=== PATIENT | male | born 1940 | race Caucasian/White ===

== ENCOUNTER 2017-06-23 05:48 | Inpatient (IN) | payer OTHER ==
[2017-06-23] MEDS ORDERED: MUPIROCIN 2% 22 GM OINT NS ONE (06:00)
[2017-06-23] MEDS ORDERED: ceFAZolin 2 GM/DEXTROSE 100 ML IV ONE (06:00)
[2017-06-23] MEDS ORDERED: LIDOCAINE 1% 2 ML INJ ID PRN (06:16)
[2017-06-23] MEDS ORDERED: LR 1,000 ML IV ONE (06:16)
--- NOTE | 2017-06-23 06:53 | PDHPUP ---
History & Physical Update H&P update statement: This history and physical update is based on an assessment of the patient which was completed after admission or registration (within 24 hours), but prior to the surgery/procedure. H&P changes: Screening labs ok.
[2017-06-23] MEDS ORDERED: MIDAZOLAM 2 MG/2 ML VIAL IVP ONE (06:56)
--- NOTE | 2017-06-23 06:56 | PDANEPAE ---
ANE History of Present Illness 77 yo for vats lobectomy ANE Past Medical History - Cardiovascular History Hx Hypertension: No Hx Arrhythmias: No Hx Chest Pain: No Hx Coronary Artery / Peripheral Vascular Disease: No Hx CHF / Valvular Disease: No Hx Palpitations: No - Pulmonary History Hx COPD: No Hx Asthma/Reactive Airway Disease: No Hx Recent Upper Respiratory Infection: No Hx Oxygen in Use at Home: No Hx Sleep Apnea: No Sleep Apnea Screening Result - Last Documented: Positive - Neurologic History Hx Cerebrovascular Accident: No Hx Seizures: No Hx Dementia: No - Endocrine History Hx Diabetes: No Obesity: no - Renal History Hx Renal Disorders: Yes Renal History Comment: NOCTURIA - Liver History Hx Hepatic Disorders: No - Neurological & Psychiatric Hx Hx Neurological and Psychiatric Disorders: No - Cancer History Hx Cancer: Yes Cancer History Comment: MELANOMA. LYMPHOMA - Congenital Disorder History Hx Congenital Disorders: No - GI History Hx Gastrointestinal Disorders: No - Other Health History Other Health History: GLAUCOMA. FATIQUE FOR AWHILE NOW. PROBLEM WITH LT EYE LOOSING VISION - Chronic Pain History Chronic Pain: No - Surgical History Prior Surgeries: APPENDECTOMY. HAYLEY CATARACT. CLEFT LIP. REMVL MELANOMA LT EAR. LT RETINAL REPAIR. LT SHLDR. TONSILLECTOMY ANE Review of Systems - Exercise capacity METS (RN): 4 METS ANE Patient History - Allergies Allergies/Adverse Reactions: poison tiera extract Allergy (Verified 06/23/17 06:29) - Home Medications Home medications: home medication list seen and reviewed Home Medications: Alphagan 0.2% TID 06/20/17 [Last Taken 06/22/17] Cosopt Pf Eye Drops BID 06/20/17 [Last Taken 06/22/17] Herbal Drugs DAILY 06/20/17 [Last Taken 06/20/17] Lumigan 0.01% (*) HS 06/20/17 [Last Taken 06/22/17] - NPO status NPO Status: no food or drink >8 hours NPO Since - Liquids (Date): 06/22/17 NPO Since - Liquids (Time): 21:30 NPO Since - Solids (Date): 06/22/17 NPO Since - Solids (Time): 18:30 - Anes Hx Anes Hx: no prior problems - Smoking Hx Smoking Status: Never smoked ANE Labs/Vital Signs - Vital Signs Blood Pressure: 132/80 Heart Rate: 54 Respiratory Rate: 15 O2 Sat (%): 94 Height: 5 ft 11 in Weight: 67.132 kg ANE Physical Exam - Airway Neck exam: FROM Mallampati Score: Class 1 Mouth exam: normal dental/mouth exam - Pulmonary Pulmonary: no respiratory distress - Cardiovascular Cardiovascular: regular rate and rhythym - ASA Status ASA Status: II ANE Anesthesia Plan Anesthesia Plan: general endotracheal anesthesia Lines/Monitors: arterial line
[2017-06-23] MEDS ORDERED: BUPIVACAINE/EPI 0.25% 30 ML SDV ONE (07:01)
[2017-06-23] MEDS ORDERED: DEXAMETHASONE 4 MG/ML VIAL ONE (07:05)
[2017-06-23] MEDS ORDERED: METOCLOPRAMIDE 10 MG/2 ML VIAL ONE (07:05)
[2017-06-23] MEDS ORDERED: ROCURONIUM 100 MG/10 ML VIAL ONE (07:05)
[2017-06-23] MEDS ORDERED: fentaNYL 100 MCG/2 ML INJ ONE ×3 (07:06→12:50)
[2017-06-23] MEDS ORDERED: PROPOFOL/EMULSION 500 MG/50 ML BOTTLE IV ONE ×2 (07:07→09:26)
[2017-06-23] MEDS ORDERED: LIDOCAINE 2% 100 MG/5 ML SYR ONE (07:11)
[2017-06-23] MEDS ORDERED: HYDROmorphONE/DILAUDID 2 MG/ML INJ ONE (08:48)
[2017-06-23] MEDS ORDERED: ALBUMIN 5% 250 ML BOTTLE IV ONE ×2 (08:55→11:32)
[2017-06-23] MEDS ORDERED: HYDROmorphONE/DILAUDID 1 MG/ML SYR IVP PRN (11:22)
[2017-06-23] MEDS ORDERED: ONDANSETRON 4 MG/2 ML VIAL IVP PRN (11:22)
[2017-06-23] MEDS ORDERED: NALOXONE HCL 0.4 MG/ML INJ IVP PRN (11:22)
[2017-06-23] MEDS ORDERED: PROMETHAZINE HCL 25 MG/ML INJ IVP PRN (11:22)
[2017-06-23] MEDS ORDERED: fentaNYL 100 MCG/2 ML INJ IVP PRN ×2 (11:22)
[2017-06-23] MEDS ORDERED: SUGAMMADEX SODIUM 200 MG/2 ML VIAL IVP ONE (11:42)
[2017-06-23] MEDS ORDERED: ACETAMINOPHEN 325 MG TAB PO PRN (12:15)
[2017-06-23] MEDS ORDERED: OXYCODONE/APAP 5/325 TAB PO PRN (12:15)
[2017-06-23] MEDS ORDERED: METOCLOPRAMIDE 10 MG/2 ML VIAL IVP PRN (12:15)
--- NOTE | 2017-06-23 12:24 | POSTOPPROG ---
Post Op Note Date of Operation: 06/23/17 Surgeon: Jose [employer] Installer: Keanu Anesthesiologist: Marcelino Anesthesia: GET(General Endotracheal) Pre-op Diagnosis: LEFTY adenoca Procedure: VATS LEFTY resection w LN sampling Inf/Abcess present in the surg proc area at time of surgery?: No EBL: 100-500 Drains: Other (1 [place]ville)
[2017-06-23] MEDS ORDERED: BISACODYL 10 MG SUPP PR PRN (12:29)
[2017-06-23] MEDS ORDERED: MAGNESIUM HYDROXIDE 30 ML UDCUP PO PRN (12:29)
[2017-06-23] MEDS ORDERED: POLYETHYLENE GLYCOL 3350 17 GM PKT PO PRN (12:29)
[2017-06-23] MEDS ORDERED: LACTULOSE 20 GM/30 ML UDCUP PO PRN (12:29)
[2017-06-23] MEDS ORDERED: HYDROmorphONE/DILAUDID 1 MG/ML SYR ONE ×2 (13:22→14:09)
[2017-06-23] MEDS: HYDROmorphONE/DILAUDID 1 MG/ML SYR IVP PRN ×5 (13:23→14:24)
[2017-06-23] MEDS ORDERED: ONDANSETRON 4 MG/2 ML VIAL ONE (14:11)
[2017-06-23] MEDS: KETOROLAC 15 MG/1 ML SDV IVP SCH ×3 (15:23→23:32)
--- NOTE | 2017-06-23 16:41 | POSTANESTH ---
Post Anesthetic Evaluation Cardiovascular Status: Normal, Stable Respiratory Status: Tx Decrease in SpO2 Level of Consciousness/Mental Status: Moderately Sleepy Pain Control: Adequate, Prn Tx Ordered Nausea/Vomiting Control: Adequate, Prn Tx Ordered Complications Possibly Related to Anesthesia: None Noted
[2017-06-23] MEDS ORDERED: EQUATE EYE EACHEYE PRN (17:16)
[2017-06-23] MEDS: ceFAZolin 2 GM/DEXTROSE 100 ML IV SCH ×2 (18:23→23:33)
[2017-06-23] MEDS ORDERED: PROPYLENE GLYCOL EACHEYE PRN (19:49)
[2017-06-23] MEDS ORDERED: PEG EACHEYE PRN (19:49)
[2017-06-23] MEDS ORDERED: DORZOLAMIDE/TIMOLOL 10 ML OPHT.BTL OP SCH (21:00)
[2017-06-23] MEDS: BRIMONIDINE 0.1% 5 ML OPHT.BTL EACHEYE SCH (21:34)
[2017-06-23] MEDS: DORZOLAMIDE/TIMOLOL 10 ML OPHT.BTL OP SCH (23:34)
[2017-06-23] MEDS: BIMATOPROST 0.01% 2.5 ML OPHT.BTL LEFTEYE SCH (23:38)
[2017-06-24] MEDS: KETOROLAC 15 MG/1 ML SDV IVP SCH ×4 (01:07→18:06)
[2017-06-24] MEDS: HYDROCODONE/APAP 5/325 TAB PO PRN ×3 (04:01→19:16)
[2017-06-24 04:50] LABS: HEMATOCRIT 35.9 % (40.0-51.0); HEMOGLOBIN 12.8 g/dL (13.7-17.5); MEAN CELL HEMOGLOBIN 33.9 pg (27.9-34.1); MEAN CELL HEMOGLOBIN CONCENTR. 35.7 g/dL (32.4-36.7); RED BLOOD CELL COUNT 3.78 10^6/uL (4.40-6.38); RED CELL DISTRIBUTION WIDTH 13.1 % (11.5-15.2)
[2017-06-24 05:15] LABS: ANION GAP 11 mEq/L (8-16); CALCIUM 9.1 mg/dL (8.5-10.4); CARBON DIOXIDE 24 mEq/l (22-31); CHLORIDE 103 mEq/L (97-110); CREATININE 0.9 mg/dL (0.7-1.3); GLOMERULAR FILTRATION RATE > 60; GLUCOSE 131 mg/dL (70-100); POTASSIUM 4.5 mEq/L (3.5-5.2); SODIUM 138 mEq/L (134-144)
[2017-06-24] MEDS ORDERED: AMIODARONE A.FIB-18HR INFSN (ORDER 3/3) IV ONE (05:30)
[2017-06-24] MEDS: DORZOLAMIDE/TIMOLOL 10 ML OPHT.BTL OP SCH ×2 (06:38→18:07)
[2017-06-24] MEDS: BRIMONIDINE 0.1% 5 ML OPHT.BTL EACHEYE SCH ×3 (07:39→18:07)
--- NOTE | 2017-06-24 07:58 | SOAPPROG ---
SOAP Progress Note Assessment/Plan: POD #1: VATS LEFTY resection with LN sampling LEFTY adenocarcinoma (T1N0M0) s/p resection with LN sampling - CT to remain on suction - Better pain control - Fentanyl patch ordered - OOB/ambulation/pulmonary toilet - Await pathology Acute blood loss anemia - Stable without need for blood product transfusions Subjective: c/o pain relieved with PO opioids Objective: Vital Signs Temp Pulse Resp BP Pulse Ox 37.1 C 63 16 122/78 H 96 06/24/17 04:08 06/24/17 04:08 06/24/17 04:08 06/24/17 04:08 06/24/17 04:08 Laboratory Results 06/24/17 04:35 06/24/17 04:35 06/23/17 06/24/17 06/25/17 05:59 05:59 05:59 Intake Total 2750 Output Total 2485 Balance 265 Physical Exam - Physical Exam General Appearance: WD/WN, alert, no apparent distress EENT: No scleral icterus (R), No scleral icterus (L) Neck: normal inspection Respiratory: No respiratory distress Cardiac/Chest: regular rate, rhythm, other (CT without air leak) Abdomen: non-tender, soft, No distended Skin: normal color, warm/dry Extremities: No pedal edema Neuro/Psych: no motor/sensory deficits, alert, normal mood/affect, oriented x 3 ICD10 Worksheet Patient Problems: Problems Problem Status Onset Adenocarcinoma of left lung Acute S/P thoracotomy Acute
[2017-06-24] MEDS ORDERED: fentaNYL 50 MCG PATCH TD SCH (08:30)
[2017-06-24] MEDS: SENNOSIDES/DOCUSATE SODIUM TAB PO SCH ×2 (09:05→20:11)
[2017-06-24] MEDS: ENOXAPARIN 40 MG/0.4 ML SYR SC SCH (09:06)
[2017-06-24] MEDS: fentaNYL 25 MCG PATCH TD SCH (09:36)
[2017-06-24] MEDS: BIMATOPROST 0.01% 2.5 ML OPHT.BTL LEFTEYE SCH (20:08)
[2017-06-24] MEDS ORDERED: AMIODARONE A.FIB-LOAD DOSE(ORDER 1/3) IV ONE (23:30)
[2017-06-24] MEDS ORDERED: AMIODARONE A.FIB-6HR INFSN (ORDER 2/3) IV ONE (23:30)
[2017-06-25] MEDS: DORZOLAMIDE/TIMOLOL 10 ML OPHT.BTL OP SCH ×2 (04:37→18:29)
[2017-06-25] MEDS: BRIMONIDINE 0.1% 5 ML OPHT.BTL EACHEYE SCH ×3 (04:42→18:28)
[2017-06-25] MEDS ORDERED: AMIODARONE A.FIB-18HR INFSN (ORDER 3/3) IV ONE (04:45)
[2017-06-25] MEDS ORDERED: LIDOCAINE 1% 5 ML SDV IF ONE (07:56)
--- NOTE | 2017-06-25 07:58 | SOAPPROG ---
SOAP Progress Note Assessment/Plan: POD #2: VATS LEFTY resection with LN sampling LEFTY adenocarcinoma (T1N0M0) s/p resection with LN sampling - CT to remain on suction, while ambulating as well - OOB/ambulation/pulmonary toilet - Await pathology Post-operative AF with RVR - Rate-controlled AF this AM - Continue amiodarone, start BB/Eliquis this AM Acute blood loss anemia - Stable without need for blood product transfusions Subjective: Still having pain at chest tube site. Denies dyspnea/chest pain. Objective: Vital Signs Temp Pulse Resp BP Pulse Ox 36.7 C 78 13 110/76 94 06/25/17 07:41 06/25/17 07:41 06/25/17 07:41 06/25/17 07:41 06/25/17 07:41 Laboratory Results 06/24/17 04:35 06/24/17 04:35 06/24/17 06/25/17 06/26/17 05:59 05:59 05:59 Intake Total 2750 896 Output Total 2485 890 Balance 265 6 Physical Exam - Physical Exam General Appearance: WD/WN, alert, no apparent distress EENT: No scleral icterus (R), No scleral icterus (L) Neck: normal inspection Respiratory: other (New large left PTX without shift ), No respiratory distress Abdomen: non-tender, soft, No distended Skin: normal color, warm/dry Extremities: No pedal edema Neuro/Psych: no motor/sensory deficits, alert, normal mood/affect, oriented x 3 ICD10 Worksheet Patient Problems: Problems Problem Status Onset Adenocarcinoma of left lung Acute Atrial fibrillation with RVR Acute S/P thoracotomy Acute
[2017-06-25] MEDS: HYDROCODONE/APAP 5/325 TAB PO PRN (08:21)
[2017-06-25] MEDS: SENNOSIDES/DOCUSATE SODIUM TAB PO SCH ×2 (08:22→21:18)
[2017-06-25] MEDS ORDERED: AMIODARONE HCL 100 ML IV ONE (09:39)
[2017-06-25] MEDS ORDERED: METOPROLOL TARTRATE 25 MG TAB PO SCH (09:45)
[2017-06-25] MEDS: ENOXAPARIN 40 MG/0.4 ML SYR SC SCH (09:53)
[2017-06-25] MEDS: APIXABAN 2.5 MG TAB PO SCH ×2 (10:33→21:18)
[2017-06-25] MEDS: METOCLOPRAMIDE 10 MG TAB PO PRN (10:33)
[2017-06-25] MEDS: KETOROLAC 15 MG/1 ML SDV IVP SCH ×3 (12:59→23:52)
--- NOTE | 2017-06-25 13:15 | GCON ---
[f rep st] CONSULTATION CARDIOLOGY CONSULTATION DATE OF CONSULTATION: 06/25/2017 REASON FOR CONSULT: New onset of atrial fibrillation and atrial flutter. HISTORY OF PRESENT ILLNESS: This patient is a pleasant 77-year-old gentleman who was electively admitted for VATS left upper lobe lung resection secondary to left upper lobe adenocarcinoma. On the evening of postoperative day 1, he developed atrial fibrillation with rapid ventricular response. He was started on IV amiodarone drip and low-dose metoprolol tartrate 12.5 mg p.o. b.i.d. He remained on amiodarone drip overnight and, at the time of this consultation, he spontaneously converted back to sinus rhythm at approximately 59 to 60 beats per minute. The patient denied any complaints of palpitations, dizziness, lightheadedness, near syncope, or syncope. He has no complaints of chest pain or chest pressure. He states he was not aware of the presence of atrial fibrillation. He noted no change in his clinical status with return to sinus rhythm. The patient has no previous history of atrial fibrillation. The patient's only complaint at the time of my examination is left-sided flank pain secondary to chest tube insertion in the setting of a left-sided pneumothorax status post VATS procedure. PAST MEDICAL HISTORY: Notable for a history of melanoma status post excision, lymphoma, glaucoma, chronic fatigue and newly diagnosed left upper lobe adenocarcinoma. PAST SURGICAL HISTORY: Appendectomy, cataract surgery, retinal repair, melanoma excision, tonsillectomy. MEDICATIONS: Prior to admission were primarily eyedrops, including Cosopt, Alphagan, Systane, Equate and Lumigan. ALLERGIES: He is allergic to poison tiera. REVIEW OF SYSTEMS: A 10-point review of systems is negative, with the exception of left-sided flank pain. PHYSICAL EXAMINATION: VITAL SIGNS: Blood pressure 104/67, heart rate is 59 in sinus rhythm, oxygen saturation is 92% on room air, temperature 36.6, respiratory rate of 16. GENERAL: He is awake. He is alert and responds appropriate to questions. He does perseverate on the idea of left-sided flank pain. He does have a known history of underlying dementia. CARDIAC: S1, S2. Regular rate and rhythm. No murmurs, rubs, or gallops. LUNGS: Clear anteriorly. EXTREMITIES: There is no evidence of cyanosis, clubbing or edema. ABDOMEN: Soft, nontender, nondistended. No pulsatile mass or abdominal bruit. LABORATORY DATA: White blood cell count of 13.4, hemoglobin 12.8, hematocrit 35.9, platelets 130. Sodium 138, potassium 4.5, chloride 103, bicarb 24, BUN 17 , creatinine 0.9, glucose 131. IMAGING: Chest x-ray done at 0900 this morning demonstrates resolving pneumothorax. IMPRESSION: New onset paroxysmal atrial fibrillation, in atrial flutter, postop day 1 left upper lobe lung resection and VATS procedure in the setting of left upper lobe adenocarcinoma. PLAN: 1. Convert to oral amiodarone at 400 mg p.o. b.i.d. to complete 5 g oral load. 2. Will decrease amiodarone to 200 mg once daily after completion of 5 g oral load. 3. Discontinue metoprolol tartrate 12.5 mg p.o. b.i.d. 4. Recommend Eliquis 2.5 mg p.o. b.i.d. 5. Will continue to follow along with his care. 6. Recommend checking TSH and free T4. 7. Will hold on complete 2D echocardiogram in the setting of left-sided flank pain with chest tube in place. Will plan for outpatient complete 2D echocardiogram. 8. Will continue to follow along with this patient's care. Thank you for the opportunity to participate in his care. 45 minutes spent coordinating care. /[id number]/MODL MTDD
[2017-06-25] MEDS ORDERED: AMIODARONE HCL 200 MG TAB PO SCH (21:00)
[2017-06-25] MEDS: AMIODARONE HCL 200 MG TAB PO SCH (21:18)
[2017-06-25] MEDS: BIMATOPROST 0.01% 2.5 ML OPHT.BTL LEFTEYE SCH (21:24)
[2017-06-26] MEDS: KETOROLAC 15 MG/1 ML SDV IVP SCH ×4 (06:07→23:13)
[2017-06-26] MEDS: HYDROCODONE/APAP 5/325 TAB PO PRN ×2 (06:10→10:58)
[2017-06-26] MEDS: DORZOLAMIDE/TIMOLOL 10 ML OPHT.BTL OP SCH ×2 (06:12→18:38)
--- NOTE | 2017-06-26 06:18 | SOAPPROG ---
SOAP Progress Note Assessment/Plan: POD #3: VATS LEFTY resection with LN sampling LEFTY adenocarcinoma (T1N0M0) s/p resection with LN sampling - CT to remain on suction at all times d/t + air leak, likely apical pigtail to be placed today by IR - OOB/ambulation/pulmonary toilet - Awaiting final pathology report Post-operative AF with RVR - Conversion to SR - Continue amiodarone, Eliquis Acute blood loss anemia - Stable without need for blood product transfusions Subjective: Denies SOB/pain. Objective: Vital Signs Temp Pulse Resp BP Pulse Ox 36.7 C 58 L 18 147/75 H 98 06/26/17 04:44 06/26/17 04:44 06/26/17 04:44 06/26/17 04:44 06/26/17 04:44 Laboratory Results 06/24/17 04:35 06/24/17 04:35 06/25/17 06/26/17 06/27/17 05:59 05:59 05:59 Intake Total 896 650 Output Total 890 715 Balance 6 -65 Physical Exam - Physical Exam General Appearance: WD/WN, alert, no apparent distress EENT: No scleral icterus (R), No scleral icterus (L) Neck: normal inspection Respiratory: No respiratory distress Cardiac/Chest: regular rate, rhythm Abdomen: non-tender, soft, No distended Skin: normal color, warm/dry Extremities: No pedal edema Neuro/Psych: no motor/sensory deficits, alert, normal mood/affect, oriented x 3 ICD10 Worksheet Patient Problems: Problems Problem Status Onset Adenocarcinoma of left lung Acute Atrial fibrillation with RVR Acute S/P thoracotomy Acute
[2017-06-26] MEDS: BRIMONIDINE 0.1% 5 ML OPHT.BTL EACHEYE SCH ×3 (06:23→18:38)
[2017-06-26] MEDS ORDERED: NALOXONE HCL 0.4 MG/ML INJ ONE (09:40)
[2017-06-26] MEDS ORDERED: ONDANSETRON 4 MG/2 ML VIAL ONE (09:40)
[2017-06-26] MEDS ORDERED: FLUMAZENIL 0.5 MG/5 ML MDV IVP ONE (09:40)
[2017-06-26] MEDS ORDERED: MIDAZOLAM 2 MG/2 ML VIAL ONE (09:41)
[2017-06-26] MEDS ORDERED: fentaNYL 100 MCG/2 ML INJ ONE (09:41)
[2017-06-26] MEDS ORDERED: NS 1,000 ML IV SCH (10:15)
[2017-06-26] MEDS ORDERED: LIDOCAINE 1% 300 MG/30 ML SDV ONE (10:29)
--- NOTE | 2017-06-26 11:28 | POSTOPPROG ---
Post Op Note Date of Operation: 06/26/17 Surgeon: Gerson Espino Anesthesia: IV Sedation Pre-op Diagnosis: Left pneumothorax Post-op Diagnosis: Same Indication: Persistent left PTX despite standard chest tube. Procedure: Fluoro guided left chest tube. Findings: 12 F pigtail positioned at left apex Inf/Abcess present in the surg proc area at time of surgery?: No EBL: Minimal Complications: 0 Drains: Other (12 F multisidehole pigtail.)
[2017-06-26] MEDS: SENNOSIDES/DOCUSATE SODIUM TAB PO SCH ×2 (12:49→20:10)
[2017-06-26] MEDS: AMIODARONE HCL 200 MG TAB PO SCH ×2 (12:49→20:10)
[2017-06-26] MEDS: APIXABAN 2.5 MG TAB PO SCH ×2 (12:50→20:10)
[2017-06-26] MEDS ORDERED: NS 500 ML IV SCH (16:45)
[2017-06-26] MEDS: BIMATOPROST 0.01% 2.5 ML OPHT.BTL LEFTEYE SCH (20:11)
--- NOTE | 2017-06-26 22:51 | PDCARPN ---
Cardiology Progress Note Assessment/Plan: Assessment: -new onset paroxysmal atrial fibrillation and atrial flutter -status post VATS procedure with lobectomy secondary to adenocarcinoma of the lung Plan: -continue amiodarone 400 mg p.o. b.i.d. x7 days, then decrease to 200 mg daily -continue Eliquis 2.5 mg p.o. b.i.d. -will continue to follow 06/26/17 22:49 Subjective: Mr. Pitt is feeling well today. Chest tube remains in place. Less discomfort at the site. Telemetry demonstrates normal sinus rhythm. No new episodes of atrial fibrillation. Remains on amiodarone 400 mg p.o. b.i.d.. Remains on Eliquis 2.5 mg p.o. b.i.d.. Hemodynamically stable. Reviewed/Discussed With: family Time Spent With Patient: 20 minutes Objective: Vital Signs (8 Hrs) Temp Pulse Resp BP Pulse Ox 06/26/17 20:00 36.5 C 125 H 16 104/74 96 06/26/17 16:00 36.9 C 59 L 11 L 125/67 H 97 Intake/Output (24 Hrs) 06/25/17 06/26/17 06/27/17 05:59 05:59 05:59 Intake Total 896 650 510 Output Total 890 715 940 Balance 6 -65 -430 Intake: Oral (ml) 596 650 310 IV Intake (ml) 200 IV Infused (ml) 300 Amiodarone HCl 200 ml @ 300 33.333 mls/hr IV ONCE ONE Rx#:[id number] Output: Urine (ml) 650 435 750 Bedside Commode 100 Toilet 200 750 Urinal 550 235 Chest Tube Output (ml) 240 280 190 Location 1 Left Pleural 240 280 190 Other: Weight 67 kg 66.6 kg Number of Voids Toilet 1 Number of Stools Toilet 1 Post Void Residual Scan Volume (ml) Toilet 0 Result Diagrams: 06/24/17 04:35 06/24/17 04:35 ICD10 Worksheet Patient Problems: Problems Problem Status Onset Adenocarcinoma of left lung Acute Atrial fibrillation with RVR Acute S/P thoracotomy Acute
[2017-06-27] MEDS: HYDROCODONE/APAP 5/325 TAB PO PRN ×2 (02:54→07:21)
[2017-06-27] MEDS: BRIMONIDINE 0.1% 5 ML OPHT.BTL EACHEYE SCH ×3 (05:58→18:31)
[2017-06-27] MEDS: KETOROLAC 15 MG/1 ML SDV IVP SCH ×3 (05:58→18:35)
[2017-06-27] MEDS: DORZOLAMIDE/TIMOLOL 10 ML OPHT.BTL OP SCH ×2 (05:59→18:31)
[2017-06-27 06:24] LABS: HEMATOCRIT 34.1 % (40.0-51.0); MEAN CELL HEMOGLOBIN 33.9 pg (27.9-34.1); MEAN CELL HEMOGLOBIN CONCENTR. 35.2 g/dL (32.4-36.7); MEAN CELL VOLUME 96.3 fL (81.5-99.8); RED BLOOD CELL COUNT 3.54 10^6/uL (4.40-6.38)
--- NOTE | 2017-06-27 06:46 | SOAPPROG ---
SOAP Progress Note Assessment/Plan: Assessment: POD#4 LVATS upper lobectomy with LN sampling LEFTY adenocarcinoma Path report confirms staging T1N0M0 - all margins clear, no visceral pleura involvement, 9 LNs neg for mets - CTs x 2 on cont suction to control air leak Post-operative AF with RVR - Responsive to amiodarone. Eliquis added for [id number] score of 2. Management per cards. Acute blood loss anemia - Stable without need for blood product transfusions Plan: [place] tube clamping trial. Repeat CXR 11am. Cont inc activity as tolerated. 06/27/17 06:46 Subjective: Doing ok. Satisfactory analgesia. Rare pleuritic pains. Light activity well tolerated. Objective: Vital Signs Temp Pulse Resp BP Pulse Ox 36.5 C 104 H 20 134/95 H 98 06/27/17 04:00 06/27/17 04:00 06/27/17 04:00 06/27/17 04:00 06/27/17 04:00 Laboratory Results 06/27/17 06:05 06/26/17 06/27/17 06/28/17 05:59 05:59 05:59 Intake Total 650 1410 Output Total 715 2808 Balance -65 -1398 Some AF w CVR overnoc. Asx. Upward SBP creep. Min suppl O2 req. CXR no PTX. Min CTOP. No air leak w nl tidal. Physical Exam - Physical Exam General Appearance: alert, no apparent distress Respiratory: crackles (tube noise), other ([place] to pleurovac, serosang drainage , no tidal, no AL; pigtail to pleurovac, serosang drainage, +tidal, 1chamber air leak w cough) Cardiac/Chest: regular rate, rhythm Abdomen: soft Skin: warm/dry Extremities: other (no visible edema) ICD10 Worksheet Patient Problems: Problems Problem Status Onset Adenocarcinoma of left lung Acute Atrial fibrillation with RVR Acute S/P thoracotomy Acute
[2017-06-27 07:03] LABS: ANION GAP 5 mEq/L (8-16); CALCIUM 8.7 mg/dL (8.5-10.4); CARBON DIOXIDE 31 mEq/l (22-31); CHLORIDE 98 mEq/L (97-110); CREATININE 0.8 mg/dL (0.7-1.3); GLOMERULAR FILTRATION RATE > 60; GLUCOSE 95 mg/dL (70-100); POTASSIUM 4.2 mEq/L (3.5-5.2); SODIUM 134 mEq/L (134-144)
[2017-06-27] MEDS: fentaNYL 25 MCG PATCH TD SCH (07:20)
[2017-06-27] MEDS: AMIODARONE HCL 200 MG TAB PO SCH ×2 (07:20→21:45)
[2017-06-27] MEDS: APIXABAN 2.5 MG TAB PO SCH ×2 (07:21→21:45)
[2017-06-27] MEDS: SENNOSIDES/DOCUSATE SODIUM TAB PO SCH (07:21)
[2017-06-27] MEDS: METOCLOPRAMIDE 10 MG TAB PO PRN (07:46)
--- NOTE | 2017-06-27 08:30 | PDCARPN ---
Cardiology Progress Note Assessment/Plan: Assessment: -new onset paroxysmal atrial fibrillation and atrial flutter -status post VATS procedure with lobectomy secondary to adenocarcinoma of the lung Plan: -continue amiodarone 400 mg p.o. b.i.d. x7 days, then decrease to 200 mg daily -continue Eliquis 2.5 mg p.o. b.i.d. -will discuss with CT surgery regarding discontinue Fentanyl patch -will continue to follow 06/26/17 22:49 06/27/17 08:29 Subjective: Mr. Pitt is back in atrial flutter this morning. Rate controlled. He is asymptomatic. Hemodynamically stable. He remains on amiodarone 400 mg bid and Eliquis 2.5 mg bid. He is confused and sommulent this am. Reviewed/Discussed With: family Objective: Vital Signs (8 Hrs) Temp Pulse Resp BP Pulse Ox 06/27/17 07:08 36.8 C 57 L 11 L 134/74 H 98 06/27/17 04:00 36.5 C 104 H 20 134/95 H 98 Intake/Output (24 Hrs) 06/26/17 06/27/17 06/28/17 05:59 05:59 05:59 Intake Total 650 1410 Output Total 715 2808 Balance -65 -1398 Intake: Oral (ml) 650 710 IV Intake (ml) 700 Output: Urine (ml) 435 2475 Toilet 200 1675 Urinal 235 800 Chest Tube Output (ml) 280 333 Location 1 Left Pleural 280 330 Location 2 12 Fr Left 3 Mediastinal Other: Weight 66.6 kg 66.5 kg Number of Voids Toilet 1 1 Number of Stools Toilet 1 Post Void Residual Scan Volume (ml) Toilet 0 Result Diagrams: 06/27/17 06:05 06/27/17 06:05 ICD10 Worksheet Patient Problems: Problems Problem Status Onset Adenocarcinoma of left lung Acute Atrial fibrillation with RVR Acute S/P thoracotomy Acute
[2017-06-27] MEDS ORDERED: HYDROCODONE/APAP 5/325 TAB PO PRN (20:00)
[2017-06-27] MEDS ORDERED: traMADol 50 MG TAB PO PRN (20:00)
[2017-06-27] MEDS ORDERED: SENNOSIDES/DOCUSATE SODIUM TAB PO PRN (21:00)
[2017-06-27] MEDS: BIMATOPROST 0.01% 2.5 ML OPHT.BTL LEFTEYE SCH (21:46)
[2017-06-28] MEDS: KETOROLAC 15 MG/1 ML SDV IVP SCH ×4 (01:51→18:34)
[2017-06-28] MEDS: DORZOLAMIDE/TIMOLOL 10 ML OPHT.BTL OP SCH ×2 (05:37→18:05)
[2017-06-28] MEDS: BRIMONIDINE 0.1% 5 ML OPHT.BTL EACHEYE SCH ×3 (05:53→18:05)
--- NOTE | 2017-06-28 09:43 | CPEKG ---
Heart Rate: 61 RR Interval: 984 P-R Interval: 148 QRSD Interval: 92 QT Interval: 436 QTC Interval: 440 P [place]: 80 QRS [place]: 88 T Wave [place]: 85 EKG Severity - BORDERLINE ECG - EKG Impression: SINUS RHYTHM EKG Impression: BORDERLINE RIGHT AXIS DEVIATION EKG Impression: BORDERLINE T ABNORMALITIES, ANT-LAT LEADS Electronically Signed By: Charlie Salas 28-Jun-2017 11:13:12
--- NOTE | 2017-06-28 10:03 | PDCARPN ---
Cardiology Progress Note Chief Complaint: PAF/fl Assessment/Plan: Assessment: 77-y/o M admitted for elective VATS after being LEFTY adenocarcinoma. Post-op day 4 today. Developed AF POD 1. Other PMH includes melanoma, lymphoma, glaucoma. [id number] appears to be only 2 based on age. #. PAF in post-op setting: has completed approximately 3 gram load of Amiodarone dose of Amio held this AM in setting of some bradycardia would recommend giving dose as HR is stable currently Plan: Continue Amiodarone 06/28/17 13:44 Subjective: Did feel AF yesterday. No dizziness, cp. Reviewed/Discussed With: other (Glendy Colunga) Objective: Vital Signs (8 Hrs) Temp Pulse Resp BP Pulse Ox 06/28/17 07:21 97.9 F 55 L 16 136/76 H 100 06/28/17 05:44 97.8 F 61 16 157/89 H 99 Intake/Output (24 Hrs) 06/27/17 06/28/17 06/29/17 05:59 05:59 05:59 Intake Total 1410 1550 Output Total 2808 1760 Balance -1398 -210 Intake: Oral (ml) 710 1550 IV Intake (ml) 700 Output: Urine (ml) 2475 1450 Toilet 1675 800 Urinal 800 650 Chest Tube Output (ml) 333 310 Location 1 Left Pleural 330 160 Location 2 12 Fr Left 3 150 Mediastinal Other: Weight 66.5 kg 66.4 kg Number of Voids Toilet 1 1 Urinal 1 Post Void Residual Scan Volume (ml) Toilet 0 Result Diagrams: 06/27/17 06:05 06/27/17 06:05 Telemetry: SR - Physical Exam Constitutional: no apparent distress Eyes: anicteric sclera Cardiovascular: regular rate and rhythm, no murmurs Respiratory: clear to auscultate bilat ICD10 Worksheet Patient Problems: Problems Problem Status Onset Adenocarcinoma of left lung Acute Atrial fibrillation with RVR Acute S/P thoracotomy Acute
[2017-06-28] MEDS: APIXABAN 2.5 MG TAB PO SCH ×2 (10:22→21:15)
[2017-06-28] MEDS: AMIODARONE HCL 200 MG TAB PO SCH ×2 (10:23→21:15)
--- NOTE | 2017-06-28 12:02 | SOAPPROG ---
SOAP Progress Note Assessment/Plan: Assessment: POD#5 LVATS upper lobectomy with LN sampling POD#2 Left 12 Fr pigtail cath by IR LEFTY adenocarcinoma Path report confirms staging T1N0M0 - all margins clear, no visceral pleura involvement, 9 LNs neg for mets - CTs x 2 on cont suction to control air leak. Say drain clamped overnoc with no air leak or PTX apparent this am. Post-operative AF with RVR - Responsive to amiodarone. Eliquis added for [id number] score of 2. Management per cards. Acute blood loss anemia - Stable without need for blood product transfusions Plan: Remove Say drain. Cont pigtail cath to cont suction. Cont inc activity as tolerated. Dispo - Anticipate home 06/28/17 07:58 Subjective: Doing ok. No dyspnea or pleuritic pains overnight. Happy to be getting a tube out. Objective: Vital Signs Temp Pulse Resp BP Pulse Ox 36.4 C 59 L 16 132/77 H 94 06/28/17 11:17 06/28/17 11:17 06/28/17 11:17 06/28/17 11:17 06/28/17 11:17 Laboratory Results 06/27/17 06:05 06/27/17 06:05 06/27/17 06/28/17 06/29/17 05:59 05:59 05:59 Intake Total 1410 1550 Output Total 2808 1760 400 Balance -1398 -210 -[address]/SB, mostly luis. Excellent sats on 1-2 Lpm, RA trial planned. Balanced I/Os. CTOP mostly serous, quantity min. CXR no PTX. - Pending Discharge Pending Discharge Within 48 Hours: Yes Pending Discharge Date: 06/30/17 Pending Discharge Time: 11:00 Physical Exam - Physical Exam General Appearance: alert, no apparent distress Respiratory: lungs clear (grossly), other (Say drain unclamped, no tidal, no AL; Pigtail thin serosang drainage, no AL w vig cough.) Cardiac/Chest: regular rate, rhythm Abdomen: soft Skin: warm/dry Extremities: other (no visible edema) ICD10 Worksheet Patient Problems: Problems Problem Status Onset Adenocarcinoma of left lung Acute Atrial fibrillation with RVR Acute S/P thoracotomy Acute
[2017-06-28] MEDS: IBUPROFEN 600 MG TAB PO SCH (18:06)
[2017-06-28] MEDS: BIMATOPROST 0.01% 2.5 ML OPHT.BTL LEFTEYE SCH (21:20)
[2017-06-29] MEDS: IBUPROFEN 600 MG TAB PO SCH ×4 (00:17→18:03)
[2017-06-29 04:29] LABS: ANION GAP 6 mEq/L (8-16); CALCIUM 8.8 mg/dL (8.5-10.4); CARBON DIOXIDE 31 mEq/l (22-31); CHLORIDE 99 mEq/L (97-110); CREATININE 0.9 mg/dL (0.7-1.3); GLOMERULAR FILTRATION RATE > 60; GLUCOSE 91 mg/dL (70-100); SODIUM 136 mEq/L (134-144)
[2017-06-29] MEDS: DORZOLAMIDE/TIMOLOL 10 ML OPHT.BTL OP SCH ×2 (08:56→18:03)
[2017-06-29] MEDS: AMIODARONE HCL 200 MG TAB PO SCH ×2 (08:56→20:49)
[2017-06-29] MEDS: BRIMONIDINE 0.1% 5 ML OPHT.BTL EACHEYE SCH ×3 (08:56→18:03)
[2017-06-29] MEDS: APIXABAN 2.5 MG TAB PO SCH ×2 (08:56→20:50)
--- NOTE | 2017-06-29 09:18 | SOAPPROG ---
SOAP Progress Note Assessment/Plan: Assessment: POD#6 LVATS upper lobectomy with LN sampling POD#3 Left 12 Fr pigtail cath by IR LEFTY adenocarcinoma Path report confirms staging T1N0M0 - all margins clear, no visceral pleura involvement, 9 LNs neg for mets - Resolving air leak. Say drain removed yest. Tiny apical PTX this am ? incomplete lung expansion rather than residual air leak. Post-operative AF with RVR - Responsive to amiodarone. Eliquis added for [id number] score of 2. Management per cards. Acute blood loss anemia - Stable without need for blood product transfusions Plan: Cont pigtail cath to cont suction. Anticipate water seal tomorrow. Switch access to peripheral IV. Cont inc activity as tolerated. Dispo - Home once pigtail out. 06/29/17 09:15 Subjective: Feels fine. Tolerating light activity w relative ease. Satisfactory analgesia. Looking forward to shower/shave. Objective: Vital Signs Temp Pulse Resp BP Pulse Ox 36.8 C 62 18 116/68 98 06/29/17 07:19 06/29/17 07:19 06/29/17 07:19 06/29/17 07:19 06/29/17 07:19 Laboratory Results 06/27/17 06:05 06/29/17 04:05 06/28/17 06/29/17 06/30/17 05:59 05:59 05:59 Intake Total 1550 600 Output Total 1760 1595 Balance -210 -995 Cardioresp status stable. CTOP thin. Quantity modest. CXR-> ?tiny apical lucency Pleurovac neg for air leak with cough. Physical Exam - Physical Exam General Appearance: alert, no apparent distress Respiratory: lungs clear (grossly), other (pigtail to pleurovac, thin serosang drainage, +tidal, no AL on suction) Cardiac/Chest: regular rate, rhythm, bradycardia Abdomen: non-tender Skin: warm/dry Extremities: other (no visible edema) ICD10 Worksheet Patient Problems: Problems Problem Status Onset Adenocarcinoma of left lung Acute Atrial fibrillation with RVR Acute S/P thoracotomy Acute
--- NOTE | 2017-06-29 10:13 | PDCARPN ---
Cardiology Progress Note Chief Complaint: No cardiovascular complaints this morning. Minor pains to the left chest Assessment/Plan: Assessment: Patient is a 77 y/o male with recent diagnosis of LEFTY adenocarcinoma s/p VATS POD#6 with post operative atrial fibrillation noted. Since that time, Amiodarone was started, and only paroxysmal atrial fibrillation noted. On telemetry at present, normal sinus rhythm noted this morning. Patient mentioned that he noted some irregularities yesterday. Eliquis therapy was started and has been tolerated to date. Amiodarone continues orally. Patient likely stay in house for the next 24 -[address] surgery recommendations. Plan: (1) would continue Amiodarone for pAF suppression (2) CVA prophylaxis with Eliquis (3) IS use through the day as well as mobilization (as tolerated) Cardiology will follow patient/telemetry while in house Subjective: No cardiovascular complaints this morning. Fair sleep overnight. Reviewed/Discussed With: family, multidisciplinary team Objective: Vital Signs (8 Hrs) Temp Pulse Resp BP Pulse Ox 06/29/17 07:19 36.8 C 62 18 116/68 98 06/29/17 04:00 36.6 C 60 16 149/79 H 98 Intake/Output (24 Hrs) 06/28/17 06/29/17 06/30/17 05:59 05:59 05:59 Intake Total 1550 600 Output Total 1760 1595 Balance -210 -995 Intake: Oral (ml) 1550 600 Output: Urine (ml) 1450 1425 Toilet 800 900 Urinal 650 525 Chest Tube Output (ml) 310 170 Location 1 Left Pleural 160 Location 2 12 Fr Left 150 170 Mediastinal Other: Weight 66.4 kg 64.8 kg Number of Voids Toilet 1 1 Urinal 1 1 Number of Stools Toilet 1 Result Diagrams: 06/27/17 06:05 06/29/17 04:05 Telemetry: normal sinus rhythm (rate of 60 bpm) - Physical Exam Constitutional: WDWN, healthy appearing, no apparent distress Eyes: PERRL, EOMI Ears, Nose, Mouth, Throat: moist mucous membranes Cardiovascular: regular rate and rhythm, no murmurs, no rubs, no gallops Peripheral Pulses: 2+: dorsalis-pedis (R), dorsalis-pedis (L) Respiratory: clear to auscultate bilat, no crackles, no wheezes, reduced air movement (to left lung field) Gastrointestinal: normoactive bowel sounds Skin: no rashes, no edema Musculoskeletal: no muscular tenderness Neurologic: AAOx3, CN II-XII grossly intact Psychiatric: cooperative, interactive, following commands ICD10 Worksheet Patient Problems: Problems Problem Status Onset Adenocarcinoma of left lung Acute Atrial fibrillation with RVR Acute S/P thoracotomy Acute
[2017-06-29] MEDS: BIMATOPROST 0.01% 2.5 ML OPHT.BTL LEFTEYE SCH (20:51)
[2017-06-30] MEDS: IBUPROFEN 600 MG TAB PO SCH ×3 (00:30→12:46)
[2017-06-30] MEDS: DORZOLAMIDE/TIMOLOL 10 ML OPHT.BTL OP SCH (06:18)
[2017-06-30] MEDS: BRIMONIDINE 0.1% 5 ML OPHT.BTL EACHEYE SCH ×2 (06:18→12:47)
--- NOTE | 2017-06-30 07:32 | SOAPPROG ---
SOAP Progress Note Assessment/Plan: Assessment: POD#7 LVATS upper lobectomy with LN sampling POD#4 Left 12 Fr pigtail cath by IR LEFTY adenocarcinoma Path report confirms staging T1N0M0 - all margins clear, no visceral pleura involvement, 9 LNs neg for mets - Resolving air leak. Say drain out. Lung remains well expanded. Post-operative AF with RVR - Responsive to amiodarone. Eliquis added for [id number] score of 2. Management per cards. Acute blood loss anemia - Stable without need for blood product transfusions Plan: Switch pigtail cath to water seal. Remove cath later today if no air leak. Cont inc activity as tolerated. Dispo - Home this evening vs tomorrow. 06/30/17 07:31 Subjective: Feels well. Hearing aids not in and having trouble communicating. No acute concerns. Objective: Vital Signs Temp Pulse Resp BP Pulse Ox 37.0 C 63 19 143/79 H 97 06/30/17 04:00 06/30/17 04:00 06/30/17 04:00 06/30/17 04:00 06/30/17 04:00 Laboratory Results 06/27/17 06:05 06/29/17 04:05 06/29/17 06/30/17 07/01/17 05:59 05:59 05:59 Intake Total 600 450 Output Total 1595 160 Balance -995 290 CXR-> no PTX Pleurovac no tidal, no air leak. Physical Exam - Physical Exam General Appearance: alert, no apparent distress Respiratory: lungs clear, other (pigtail cath behaving like a tube and switched to WS) Cardiac/Chest: regular rate, rhythm Abdomen: soft Skin: warm/dry Extremities: other (no visible edema) ICD10 Worksheet Patient Problems: Problems Problem Status Onset Adenocarcinoma of left lung Acute Atrial fibrillation with RVR Acute S/P thoracotomy Acute
[2017-06-30] MEDS: APIXABAN 2.5 MG TAB PO SCH (10:35)
[2017-06-30] MEDS: AMIODARONE HCL 200 MG TAB PO SCH (10:35)
[2017-06-30 15:16] VITALS: BP 116/71; PULSE 60; RESP 20; TEMP 97.7; O2SAT 96
--- NOTE | 2017-06-30 15:38 | PDDCSUM ---
Discharge Summary Discharge Summary: DATE OF ADMISSION: 06/23/17 DATE OF DISCHARGE: 06/30/17 DISPOSITION: Home, self-care PRINCIPAL ADMISSION DIAGNOSIS: Adenocarcinoma of the left lung PRINCIPAL DISCHARGE DIAGNOSES: 1. Status post video assisted thoracoscopic left upper lobectomy 2. Acute expected blood loss anemia 3. Postoperative left pneumothorax 4. Postoperative paroxysmal atrial fibrillation and flutter HISTORY OF PRESENT ILLNESS: 77 yo male with chronic fatigue found to have a 12 mm spiculated lesion of the upper lobe of the left lung. Demonstrated to be an adenocarcinoma by CT guided biopsy and staged as T1N0M0 by PET. Admitted for a minimally invasive excision. PERTINENT PAST MEDICAL HISTORY: Lymphoma in remission, Waldenstrom macroglobulinemia, Glaucoma, Hearing loss MEDICATIONS ON ADMISSION: Lumigan 0.01% one drop left eye hs, Cosopt 1 drop each eye BID, Brimonidine 0.1 % one drop each eye TID, Equate eye drops prn dryness, Systane eye drops prn dryness, herbal supplement daily ALLERGIES/SENSITIVITIES: NKDA CONSULTANTS: Cardiology (Ambrosio), Interventional radiology (Kenzie) PROCEDURES/IMAGIN/31 (Norma): VATS left upper lobe resection with lymph node sampling. 06/26 (Kenzie): Placement 12 Khmer pigtail catheter left hemithorax ABBREVIATED HOSPITAL COURSE BY ACTIVE PROBLEM LIST: 1. LEFTY adenocarcinoma - Wedge resection not feasible and entire upper lobe removed. Path report confirmatory of T1N0M0 staging, showing clear margins, no visceral pleura involvement, and 9 LNs neg for mets. Surveillance per oncology. 2. Postop PTX - Associated with a small volume air leak. Second chest tube required to adequately control leak. Tubes removed in serial fashion without significant delay. No residual PTX by CXR prior to discharge. 3. Post-operative PAF/Fl - Responsive to amiodarone. Adjunctive BB stopped due to bradycardia. Eliquis added for [id number] score of 2. Outpatient management per cards. 4. Acute blood loss anemia - Stable without need for blood/blood product transfusion. H/H > 11/33 maintained. DISCHARGE CLINICAL INFORMATION: Left mini thoracotomy CDI, sutured, +Dermabond. HR 55-60s. SBP 110s-120s. SpO2 96% RA. WBC 6.46, Hgb12 , HCT 34.1 , Plt 136, Na 136, K 4, Cr 0.9 TSH 3.2 DISCHARGE MEDICATIONS: As on admission with the following NEW prescriptions: 1. Amiodarone 400 mg BID thru 07/02, then 200 mg daily x 4 weeks or as directed by cardiology. 2. Eliquis 2.5 mg BID x 4 weeks or as directed by cardiology. 3. Tramadol 50 mg q 6-8 hrs prn breakthrough pain. 4. OTC: Ibuprofen 400-600mg 4x daily (with meals and before bed) as needed for incisional discomfort. Not to exceed 3 more days of regular use. FOLLOW UP APPOINTMENTS: 1. CV surgery: with Dr Green at [facility] on 07/08 at 10 am. 2. Cardiology: with Dr Valente at [facility] within 3 weeks. Appointment to be established during surgical visit. 3. Oncology: with Dr Riddle at [facility] as directed for review of pathology report and surveillance strategy. FOLLOW UP TESTING: CXR prior to surgical appointment. Transthoracic echocardiogram per Dr Valente.
== END 2017-06-30 17:50 | disposition home or self-care (01) | DRG 164 ==
LOC: F3N 05:48 → F2W 12:16
PROVIDERS: ADMIT Thoracic Surgery (Cardiothoracic Vascular Surgery); ATTEND Thoracic Surgery (Cardiothoracic Vascular Surgery)
PROC: 0BTG0ZZ Resection of Left Upper Lung Lobe, Open Approach (ICD-10-PCS; principal; 2017-06-23 07:15)
PROC: 07B70ZX Excision of Thorax Lymphatic, Open Approach, Diagnostic (ICD-10-PCS; principal; 2017-06-23 07:15)
PROC: 0BJL4ZZ Inspection of Left Lung, Percutaneous Endoscopic Approach (ICD-10-PCS; principal; 2017-06-23 07:15)
PROC: 0W9B30Z Drainage of Left Pleural Cavity with Drainage Device, Percutaneous Approach (ICD-10-PCS; 2017-06-26)
DX: C34.12 Malignant neoplasm of upper lobe, left bronchus or lung (principal); I48.0 Paroxysmal atrial fibrillation; I48.92 Unspecified atrial flutter; J95.811 Postprocedural pneumothorax; Z85.820 Personal history of malignant melanoma of skin; Z85.72 Personal history of non-Hodgkin lymphomas; D62 Acute posthemorrhagic anemia
CPT/HCPCS: 97110-GP; 97116-GP; 97161-GP; 97530-GP; G8978-GP-CI; G8978-GP-CJ; G8979-GP-CI; G8980-GP-CI; J0282; J0690; J1100; J1170; J1650; J1885; J2001; J2250; J2310; J2405; J2704; J2765; J3010; P9041

== ENCOUNTER → 2017-07-08 | Outpatient (CLI) | payer OTHER | LOC: FIMAGING 09:30 | PROVIDERS: ATTEND Thoracic Surgery (Cardiothoracic Vascular Surgery) | DX: Z08 Encounter for follow-up examination after completed treatment for malignant neoplasm (principal); Z90.2 Acquired absence of lung [part of]; Z85.72 Personal history of non-Hodgkin lymphomas ==